=== PATIENT | male | born 1990 | race Caucasian/White ===

== ENCOUNTER 2018-08-04 22:54 | Emergency (ER) | payer OTHER ==
[~2018-08-04] VITALS: Ht 185.4 cm; Wt 86.2 kg
[2018-08-05] MEDS ORDERED: MIRALAX510 GM PO (03:47)
[2018-08-05] MEDS ORDERED: KETO10TA2 PO (03:47)
== END 2018-08-05 03:52 | disposition home or self-care (01) ==
LOC: ER 22:54
DX: K36 Other appendicitis (principal)